=== PATIENT | male | born 1955 | race Caucasian/White ===

== ENCOUNTER 2019-02-22 19:28 | Inpatient (IN) | payer OTHER ==
[2019-02-22] VITALS (7 sets, daily range): BP systolic 100–120; BP diastolic 67–80
[~2019-02-22] VITALS: Ht 182.9 cm; Wt 79.1 kg
--- NOTE | ~2019-02-22 | EKG ---
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1955 Requested By: SAVANNAH LINDQUIST Order Number: [id number] Reading MD: Christal Triana Measurements Intervals [place] Rate: 67 P: 66 [place]: 183 QRS: -54 QRSD: 113 T: 11 QT: 405 QTc: 428 Interpretive Statements Sinus rhythm Probable left atrial enlargement Incomplete RBBB and LAFB Left ventricular hypertrophy Anterior Q waves, possibly due to LVH Borderline ST elevation, lateral leads No previous ECG available for comparison Electronically Signed On 02-25-2019 11:51:24 PDT by Christal Triana CM:EKGRPT:ELECTROCARDIOGRAM REPORT 1151 SAVANNAH LINDQUIST MD EPIPHANY DRAFT REPORT SAVANNAH LINDQUIST MD
--- NOTE | ~2019-02-22 | EKG ---
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1955 Requested By: SAVANNAH LINDQUIST Order Number: [id number] Reading MD: Christal Triana Measurements Intervals [place] Rate: 68 P: 70 [place]: 183 QRS: -56 QRSD: 111 T: 35 QT: 395 QTc: 421 Interpretive Statements Sinus rhythm Probable left atrial enlargement Incomplete RBBB and LAFB Abnormal R-wave progression, early transition Left ventricular hypertrophy Anterior Q waves, possibly due to LVH Baseline wander in lead(s) I,aVL No previous ECG available for comparison Electronically Signed On 02-25-2019 11:52:45 PDT by Christal Triana CM:EKGRPT:ELECTROCARDIOGRAM REPORT [id number] 1152 SAVANNAH KEARNS DRAFT REPORT SAVANNAH LINDQUIST MD
--- NOTE | ~2019-02-22 | ST ---
[place], [place] EXERCISE STRESS TEST REPORT [id number] UNIT #: [id number] ROOM: 506 DOCTOR: JOSE LANDAVERDE,CASTILLO BIRTHDATE: [birth year] DOS: 02/23/2019 LEXISCAN STRESS TEST. REASON FOR TEST: The patient's chest pain and hypertension. PHYSICAL EXAMINATION NECK: Supple. LUNGS: Clear anteriorly. HEART: Regular rhythm. PROTOCOL: Lexiscan protocol. Maximum heart rate 116. Peak blood pressure 140/80. SYMPTOMS: The patient is chest pain free. EKG: Resting EKG showed sinus rhythm. Stress EKG showed no ischemia, no arrhythmias. CONCLUSION: Clinically, the patient is chest pain free. EKG nonischemic. POST-STRESS COMPLICATIONS: None. The patient received total of 0.4 mg Lexiscan. CASTILLO GARCIA MD CM:STRESS:EXERCISE STRESS TEST REPORT [id number] CASTILLO GARCIA MD
--- NOTE | ~2019-02-22 | EKG ---
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1955 Requested By: SAVANNAH LINDQUIST Order Number: [id number] Reading MD: Christal Triana Measurements Intervals [place] Rate: 78 P: 65 SD: 178 QRS: -60 QRSD: 116 T: 42 QT: 369 QTc: 421 Interpretive Statements Sinus rhythm Probable left atrial enlargement Incomplete RBBB and LAFB Left ventricular hypertrophy Anterior Q waves, possibly due to LVH Borderline ST elevation, lateral leads No previous ECG available for comparison Electronically Signed On 02-25-2019 11:51:01 PDT by Christal Triana CM:EKGRPT:ELECTROCARDIOGRAM REPORT [id number] 1151 SAVANNAH LINDQUIST MD EPIPHANY DRAFT REPORT SAVANNAH LINDQUIST MD
[~2019-02-22 19:28] MED LIST: ASPIRIN81 M1 PO; AUGMENTIN 875875 MG PO; BLOOD PRESSURE MED; CYCLOBENZAPRINE10 MG PO; DIAZEPAM5 MG PO; IBU800 MG PO; OMEPRAZOLE20 M2 PO; PREDNISONE10 MG PO; VICODIN 5-3001 EACH PO; VICODIN ES 7.51 EACH PO
[2019-02-22 19:55] LABS: BASO # 0.1 10*3/uL (0.0-0.1); BASO % 1.1 % (0.0-1.0); EOS # 0.4 10*3/uL (0.0-0.4); EOS % 5.4 % (1.0-4.0); HEMATOCRIT 37.8 % (42.0-52.0); HEMOGLOBIN 12.9 g/dl (14.0-18.0); LYMPH # 2.5 10*3/uL (1.3-4.4); LYMPH % 39.2 % (27.0-41.0); MEAN CORPUSCULAR HGB 33.8 pg (27.0-31.0); MEAN CORPUSCULAR HGB CONC 34.1 g/dl (33.0-37.0); MONO # 0.5 10*3/uL (0.1-1.0); MONO % 7.7 % (3.0-9.0); NEUT % 46.3 % (47.0-73.0); PLATELET COUNT AUTOMATED 284 10*3/uL (130-400); RED BLOOD COUNT 3.82 10*6/uL (4.50-5.90); WHITE BLOOD COUNT 6.5 10*3/uL (4.8-10.8)
[2019-02-22 20:06] LABS: ACT PARTIAL THROMBO TIME 22.5 SECONDS (20.0-32.1); INTERNATIONAL NORM RATIO 0.9 (2.0-3.5)
[2019-02-22 20:31] LABS: ALBUMIN 3.9 gm/dl (3.1-4.5); ALKALINE PHOSPHATASE 66 U/L (45-117); BUN 15 mg/dl (7-24); CHLORIDE 103 mmol/L (98-107); CREATININE 1.24 mg/dL (0.70-1.30); POTASSIUM 4.4 mmol/L (3.5-5.1); SGOT/AST 22 IU/L (3-35); SGPT/ALT 27 U/L (12-78); SODIUM 136 mmol/L (136-145); TOTAL PROTEIN 7.4 gm/dL (6.4-8.2)
[2019-02-22 20:36] LABS: TROPONIN I < 0.015 ng/ml (<0.045)
[2019-02-23 01:10] VITALS: BP 119/68
[2019-02-23 01:40] VITALS: BP 125/78
[2019-02-23 02:00] VITALS: BP 123/81
[2019-02-23] MEDS ORDERED: CLARITIN10 MG PO (02:39)
[2019-02-23] MEDS ORDERED: IBUPROFEN600 MG PO (02:39)
[2019-02-23 06:36] LABS: BASO # 0.1 10*3/uL (0.0-0.1); BASO % 0.7 % (0.0-1.0); EOS # 0.4 10*3/uL (0.0-0.4); EOS % 4.3 % (1.0-4.0); HEMATOCRIT 37.5 % (42.0-52.0); HEMOGLOBIN 12.8 g/dl (14.0-18.0); LYMPH # 1.9 10*3/uL (1.3-4.4); LYMPH % 23.7 % (27.0-41.0); MEAN CELL VOLUME 99.2 fl (80.0-94.0); MEAN CORPUSCULAR HGB 33.9 pg (27.0-31.0); MEAN CORPUSCULAR HGB CONC 34.1 g/dl (33.0-37.0); MEAN PLATELET VOLUME 9.5 fl (9.6-12.3); MONO # 0.7 10*3/uL (0.1-1.0); MONO % 8.3 % (3.0-9.0); NEUT % 62.6 % (47.0-73.0); PLATELET COUNT AUTOMATED 297 10*3/uL (130-400); RED BLOOD COUNT 3.78 10*6/uL (4.50-5.90); RED CELL DISTRI WIDTH 12.2 % (0-14.5); WHITE BLOOD COUNT 8.1 10*3/uL (4.8-10.8)
[2019-02-23 07:03] LABS: ALBUMIN 3.5 gm/dl (3.1-4.5); ALKALINE PHOSPHATASE 57 U/L (45-117); BUN 13 mg/dl (7-24); CHLORIDE 109 mmol/L (98-107); CHOLESTEROL 166 mg/dL (<200); CREATININE 0.92 mg/dL (0.70-1.30); HDL CHOLESTEROL 56 mg/dl (40-60); LDL CHOLESTEROL 71 mg/dL (9-159); PHOSPHOROUS 3.8 mg/dL (2.5-4.9); SGOT/AST 22 IU/L (3-35); SGPT/ALT 23 U/L (12-78); SODIUM 142 mmol/L (136-145); TOTAL PROTEIN 6.6 gm/dL (6.4-8.2); TRIGLYCERIDES 196 mg/dl (<150); VLDL CHOLESTEROL 39 mg/dL (6-40)
[2019-02-23 07:09] LABS: FREE T4 0.78 ng/dl (0.76-1.46)
[2019-02-23 08:13] VITALS: BP 124/78
[2019-02-23 08:18] LABS: VITAMIN D, 25-HYDROXY 39.8 ng/mL (30-100)
[2019-02-23 12:16] VITALS: BP 126/80
== END 2019-02-23 15:53 | disposition home or self-care (01) | DRG 391 ==
LOC: ED 19:28 → EDHOLD 02-23 01:02 → 5E 02-23 01:10
PROVIDERS: Emergency Medicine Emergency Medical Services; Family Medicine; ADMIT Internal Medicine
PROC: 4A02XM4 Measurement of Cardiac Total Activity, External Approach (ICD-10-PCS; principal; 2019-02-23)
PROC: 3E073KZ Introduction of Other Diagnostic Substance into Coronary Artery, Percutaneous Approach (ICD-10-PCS; 2019-02-23)
DX: K21.9 Gastro-esophageal reflux disease without esophagitis (principal); J18.9 Pneumonia, unspecified organism; F41.9 Anxiety disorder, unspecified; M94.0 Chondrocostal junction syndrome [Tietze]; R55 Syncope and collapse; I10 Essential (primary) hypertension; F17.210 Nicotine dependence, cigarettes, uncomplicated; F41.0 Panic disorder [episodic paroxysmal anxiety]; R79.89 Other specified abnormal findings of blood chemistry; M51.27 Other intervertebral disc displacement, lumbosacral region; D53.9 Nutritional anemia, unspecified; E83.41 Hypermagnesemia; Z71.6 Tobacco abuse counseling; Z80.8 Family history of malignant neoplasm of other organs or systems; Z82.0 Family history of epilepsy and other diseases of the nervous system; Z84.89 Family history of other specified conditions; Z79.899 Other long term (current) drug therapy; Z88.5 Allergy status to narcotic agent; Z79.82 Long term (current) use of aspirin

== ENCOUNTER → 2020-12-11 | Outpatient (CLI) | payer OTHER ==
[~2020-12-11] MED LIST changes: +CLARITIN10 MG PO; +IBUPROFEN600 MG PO
== END | disposition home or self-care (01) ==
LOC: CT 09:56
PROVIDERS: ATTEND Nurse Practitioner Family
DX: J43.2 Centrilobular emphysema (principal); I25.10 Atherosclerotic heart disease of native coronary artery without angina pectoris; I77.810 Thoracic aortic ectasia; R59.0 Localized enlarged lymph nodes; J98.4 Other disorders of lung; M41.84 Other forms of scoliosis, thoracic region; M51.34 Other intervertebral disc degeneration, thoracic region; K22.8 Other specified diseases of esophagus

== ENCOUNTER → 2022-06-08 | Outpatient (CLI) | payer OTHER | END | disposition home or self-care (01) | LOC: CT 09:56 | PROVIDERS: ATTEND Internal Medicine | DX: J43.8 Other emphysema (principal); R91.1 Solitary pulmonary nodule; I25.10 Atherosclerotic heart disease of native coronary artery without angina pectoris ==

== ENCOUNTER 2022-07-17 01:09 | Emergency (ER) | payer OTHER ==
[2022-07-17] MEDS ORDERED: FLONASE ALLERG9.9 ML NAS (01:16)
[2022-07-17] MEDS ORDERED: PROPRANOLOL HYD10 MG PO (01:17)
[2022-07-17] MEDS ORDERED: LIPITOR40 MG PO (01:17)
[2022-07-17 01:34] LABS: BASO # 0.1 10*3/uL (0.0-0.1); BASO % 1.2 % (0.0-1.0); EOS # 0.5 10*3/uL (0.0-0.4); EOS % 7.6 % (1.0-4.0); HEMATOCRIT 36.7 % (42.0-52.0); LYMPH # 1.5 10*3/uL (1.3-4.4); LYMPH % 25.1 % (27.0-41.0); MEAN CELL VOLUME 95.6 fl (80.0-94.0); MEAN CORPUSCULAR HGB 33.1 pg (27.0-31.0); MEAN CORPUSCULAR HGB CONC 34.6 g/dl (33.0-37.0); MEAN PLATELET VOLUME 8.7 fl (9.6-12.3); MONO # 0.7 10*3/uL (0.1-1.0); MONO % 11.2 % (3.0-9.0); NEUT # 3.2 10*3/uL (2.3-7.9); NEUT % 54.6 % (47.0-73.0); PLATELET COUNT AUTOMATED 381 10*3/uL (130-400); RED BLOOD COUNT 3.84 10*6/uL (4.50-5.90); RED CELL DISTRI WIDTH 11.9 % (0-14.5); WHITE BLOOD COUNT 5.9 10*3/uL (4.8-10.8)
[2022-07-17 01:53] LABS: ALKALINE PHOSPHATASE 72 U/L (45-117); BUN 10 mg/dl (7-24); CHLORIDE 108 mmol/L (98-107); CREATININE 0.86 mg/dL (0.70-1.30); POTASSIUM 3.7 mmol/L (3.5-5.1); SGOT/AST 22 IU/L (3-35); SGPT/ALT 30 U/L (12-78); SODIUM 139 mmol/L (136-145); TOTAL PROTEIN 6.9 gm/dL (6.4-8.2)
[2022-07-17 02:47] VITALS: BP 131/74
== END 2022-07-17 03:15 | disposition home or self-care (01) ==
LOC: ED 01:09
PROVIDERS: Internal Medicine
DX: U07.1 COVID-19 (principal); D53.9 Nutritional anemia, unspecified; Z88.8 Allergy status to other drugs, medicaments and biological substances; Z79.899 Other long term (current) drug therapy; F17.200 Nicotine dependence, unspecified, uncomplicated

== ENCOUNTER → 2022-08-05 | Outpatient (CLI) | payer OTHER ==
[~2022-08-05] MED LIST changes: +FLONASE ALLERG9.9 ML NAS; +LIPITOR40 MG PO; +PROPRANOLOL HYD10 MG PO
== END | disposition home or self-care (01) ==
LOC: RAD 08:47
PROVIDERS: ATTEND Nurse Practitioner Family
DX: J44.9 Chronic obstructive pulmonary disease, unspecified (principal); R91.8 Other nonspecific abnormal finding of lung field; R06.2 Wheezing; R05.9 Cough, unspecified

== ENCOUNTER 2022-09-22 01:37 | Emergency (ER) | payer OTHER ==
[~2022-09-22] VITALS: Ht 182.8 cm; Wt 83.5 kg
[2022-09-22 01:46] VITALS: BP 129/72
[2022-09-22] MEDS ORDERED: LEVOFLOXACIN750 M2 PO (02:56)
== END 2022-09-22 03:30 | disposition home or self-care (01) ==
LOC: ED 01:37
DX: R04.2 Hemoptysis (principal); R91.1 Solitary pulmonary nodule; J18.9 Pneumonia, unspecified organism; Z88.1 Allergy status to other antibiotic agents; Z98.890 Other specified postprocedural states; F10.90 Alcohol use, unspecified, uncomplicated; F17.200 Nicotine dependence, unspecified, uncomplicated

== ENCOUNTER 2022-10-03 09:07 | Emergency (ER) | payer OTHER, MEDICAID ==
[~2022-10-03] VITALS: Ht 180.3 cm; Wt 78.9 kg
[~2022-10-03 09:07] MED LIST changes: +LEVOFLOXACIN750 M2 PO
[2022-10-03 09:18] VITALS: BP 164/98
[2022-10-03] MEDS ORDERED: PERCOCET 5-3251 EACH PO (12:06)
== END 2022-10-03 12:29 | disposition home or self-care (01) ==
LOC: ED 09:07
DX: M54.41 Lumbago with sciatica, right side (principal); M48.56XA Collapsed vertebra, not elsewhere classified, lumbar region, initial encounter for fracture; Z88.5 Allergy status to narcotic agent; Z98.890 Other specified postprocedural states; F17.200 Nicotine dependence, unspecified, uncomplicated; F10.90 Alcohol use, unspecified, uncomplicated